=== PATIENT | male | born 1960 | race Caucasian/White ===

== ENCOUNTER 2017-01-09 14:58 | Emergency (ER) | payer OTHER, MEDICAID ==
[2017-01-09 15:03] VITALS: BP 118/81; BMI 24.3
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
== END 2017-01-09 16:43 | disposition home or self-care (01) ==
LOC: ER 14:58
DX: M62.838 Other muscle spasm (principal); V89.2XXA Person injured in unspecified motor-vehicle accident, traffic, initial encounter
CPT/HCPCS: 72125; 99282